=== PATIENT | male | born 1995 | race Native Hawaiian/Other Pacific Islander ===

== ENCOUNTER 2017-04-26 09:26 | Emergency (ER) | payer SELFPAY ==
[2017-04-26 10:27] VITALS: BP 123/64
[2017-04-26] MEDS ORDERED: ZOFRAN ODT PO ONE (12:05)
--- NOTE | 2017-04-26 12:09 | Emergency Department Report ---
HPI - General Chief Complaint: Sore Throat Time Seen by Provider: 04/26/17 12:04 - HPI HPI: 21-year-old male comes in complaining of fever or sore throat cough and vomiting since Wednesday. Patient reports that he has vomited between 5 and 6 times since Wednesday. He reports he is taking Advil just prior to vomiting. He reports his temperature has been as high as 100. Has had decreased appetite complains of left side of body pain. Has been coughing with sore throat. Reports no past medical history currently takes no medications and has no known drug allergies. ED Past Medical Hx - Past Medical History Previous Medical History?: No - Surgical History Past Surgical History?: No - Social History Smoking Status: Current Every Day Smoker - Medications Home Medications: Home Medications Medication Instructions Recorded Confirmed Last Taken Type methOCARBAMOL [Robaxin TAB] 500 mg PO Q6H PRN #20 tablet 03/22/15 Unknown Rx traMADol [Ultram 50 MG tab] 50 mg PO Q6HR PRN #15 tablet 03/22/15 Unknown Rx Ibuprofen [Motrin 600 MG tab] 600 mg PO Q8H PRN #15 tablet 04/26/17 Unknown Rx ED Review of Systems ROS: Stated complaint: FLU LIKE SYMPTOMS Other details as noted in HPI Constitutional: fever Eyes: denies: eye pain, eye discharge, vision change ENT: throat pain Respiratory: cough Cardiovascular: denies: chest pain, palpitations Endocrine: no symptoms reported Gastrointestinal: nausea, vomiting Genitourinary: denies: urgency, dysuria Musculoskeletal: denies: back pain, joint swelling, arthralgia Skin: denies: rash, lesions Neurological: denies: headache, weakness, paresthesias Psychiatric: denies: anxiety, depression Hematological/Lymphatic: denies: easy bleeding, easy bruising Physical Exam - Physical Exam Vital Signs: Vital Signs 04/26/17 10:21 Temperature 97.4 F L Pulse Rate 65 Respiratory 16 Rate Blood Pressure 123/64 O2 Sat by Pulse 96 Oximetry Physical Exam: GENERAL APPEARANCE: Well developed, well nourished, in no acute distress. SKIN: Inspection of the skin reveals no rashes, ulcerations or petechiae. HEENT: The sclerae were anicteric and conjunctivae were pink and moist. Extraocular movements were intact and pupils were equal, round, and reactive to light with normal accommodation. External inspection of the ears and nose showed no scars, lesions, or masses. Lips, teeth, and gums showed normal mucosa. The oral mucosa, hard and soft palate, tongue and posterior pharynx were normal. Mild erythematous pharynx. NECK: Supple and symmetric. There was no thyroid enlargement, and no tenderness , or masses were felt. CHEST: Normal AP diameter and normal contour without any kyphoscoliosis. LUNGS: Auscultation of the lungs revealed normal breath sounds without any other adventitious sounds or rubs. CARDIOVASCULAR: There was a regular rate and rhythm without any murmurs, gallops , rubs. The carotid pulses were normal and 2+ bilaterally without bruits. Peripheral pulses were 2+ and symmetric. ABDOMEN: Soft and nontender with normal bowel sounds. T The spleen was not palpable. There were no inguinal or umbilical hernias noted. No ascites was noted. LYMPH NODES: No lymphadenopathy was appreciated in the neck, axillae or groin. MUSCULOSKELETAL: Gait was normal. There was no tenderness or effusions noted. Muscle strength and tone were normal. EXTREMITIES: No cyanosis, clubbing or edema. NEUROLOGIC: Alert and oriented x 3. Normal affect. Gait was normal. Normal deep tendon reflexes with no pathological reflexes. Sensation to touch was normal. ED Course Vital Signs 04/26/17 10:21 Temperature 97.4 F L Pulse Rate 65 Respiratory 16 Rate Blood Pressure 123/64 O2 Sat by Pulse 96 Oximetry ED Medical Decision Making - Radiology Data IMPRESSION: Unremarkable chest x-ray. Critical care attestation.: If time is entered above; I have spent that time in minutes in the direct care of this critically ill patient, excluding procedure time. ED Disposition Clinical Impression: Cold Disposition: DC-01 TO HOME OR SELFCARE Is pt being admited?: No Does the pt Need Aspirin: No Condition: Stable Instructions: Viral Syndrome (ED) Additional Instructions: Please take medication as prescribed. Follow up with her primary care provider I have listed one below. Prescriptions: Ibuprofen [Motrin 600 MG tab] 600 mg PO Q8H PRN #15 tablet PRN Reason: Pain Referrals: PRIMARY CARE, [Primary Care Provider] - 3-5 Days Forms: Work/School Release Form(ED)
--- NOTE | 2017-04-26 12:48 | XRay Report ---
ROUTINE CHEST, TWO VIEWS: HISTORY: Cough. The trachea, heart, mediastinal contour, lung ricks and bony thorax are unremarkable. IMPRESSION: Unremarkable chest x-ray.
[2017-04-26] MEDS ORDERED: MOTRIN PO ONE (13:28)
== END 2017-04-26 14:23 | disposition home or self-care (01) ==
LOC: ED 09:26
DX: J00 Acute nasopharyngitis [common cold] (principal); R11.10 Vomiting, unspecified; F17.200 Nicotine dependence, unspecified, uncomplicated
CPT/HCPCS: 71046; 87116; 87430; Q0162